=== PATIENT | male | born 1945 | race Caucasian/White ===

== ENCOUNTER 2016-08-12 19:00 | Emergency (ER) | payer MEDICARE ==
--- NOTE | 2016-08-12 19:33 | EDM.PDOC ---
ED HPI GENERAL MEDICAL PROBLEM - General Chief Complaint: Genitourinary Problem Stated Complaint: HAD SURGERY/PLUGGED CATHETER Time Seen by Provider: 08/12/16 19:21 - History of Present Illness INITIAL COMMENTS - FREE TEXT/NARRATIVE: HISTORY AND PHYSICAL: History of present illness: The patient is a 71-year-old male who presents with a indwelling Crowe catheter that was placed on Wednesday after hip surgery when he was unable to urinate postoperatively. Patient states that the urine output has been good from the Crowe and over the last few hours has only put out a small amount is concerned that it might be clogged. He she had right hip surgery at [facility] in [place] on Wednesday and has been doing well from that perspective--mild hip pain but not excessive. He's had no systemic complaints of fevers chills chest pain shortness of breath abdominal pain and has been using the pain medications as needed but had a bowel movement today. Last evening he had good urine output and when he woke this morning his bag was full but throughout the day today he has been drinking a lot of water and has not had a lot of urine output. He does not feel like his bladder is full and has no pelvic or lower abdominal pain. He had his prostate checked within the last year by Dr. Nixon and he was told that it was not enlarged. Patient denies any flank pain and has no history of kidney problems. He otherwise has no complaints other than wanting the Crowe to be checked Review of systems: As per history of present illness and below otherwise all systems reviewed and negative. Past medical history: As per history of present illness and as reviewed below otherwise noncontributory. Surgical history: As per history of present illness and as reviewed below otherwise noncontributory. Social history: No reported history of drug or alcohol abuse. Family history: As per history of present illness and as reviewed below otherwise noncontributory. Physical exam: General: Well-developed well-nourished man who is nontoxic and has a bleeding with a walker without difficulty. He moves easily in the ED without distress. HEENT: Atraumatic, normocephalic, negative for conjunctival pallor or scleral icterus, mucous membranes moist, throat clear, neck supple, nontender, trachea midline. Lungs: Clear to auscultation, breath sounds equal bilaterally, chest nontender. Heart: S1S2, regular, negative for clicks, rubs, or JVD. Abdomen: Soft, nondistended, nontender. There is no specific suprapubic fullness or tenderness appreciated. Negative for masses or hepatosplenomegaly. Negative for costovertebral tenderness. Pelvis: Stable nontender. Genitourinary: Deferred. Leg bag was visualized and there was approximately 50- 100 cc of colored urine in the bag which the patient states is relatively new. Rectal: Deferred. Extremities: Atraumatic, negative for cords or calf pain. Neurovascular unremarkable. Incision at right hip is clean and dry with dressing intact and there is some pinkish brawny erythema around it but no tenderness fluctuance or drainage. Neuro: Awake, alert, oriented. Cranial nerves II through XII unremarkable. Cerebellum unremarkable. Motor and sensory unremarkable throughout. Exam nonfocal. Diagnostics: Therapeutics: Irritation of Crowe, bladder scan The patient would like to defer labs at this time and only address the Crowe catheter which we will have nursing do Nursing has irrigated the Crowe and is getting output of what ever they're putting and so we will perform bladder scan and reevaluate Bladder scan has revealed 35 cc. I discussed with the patient that his decreased urine output is not due to a Crowe catheter malfunction but he needs to drink more fluids. He is aware of this and we'll continue to monitor his output. I advised him Impression: Crowe catheter evaluation Definitive disposition and diagnosis as appropriate pending reevaluation and review of above. Right Hip Pain Score (Numeric/FACES): 3 - Related Data Allergies Allergy/AdvReac Type Severity Reaction Status Date / Time No Known Allergies Allergy Unverified 08/12/16 19:18 Past Medical History HEENT History: Reports: Impaired vision Cardiovascular History: Reports: Hypertension Respiratory History: Reports: None Gastrointestinal History: Reports: GI bleed Genitourinary History: Reports: Renal calculus Neurological History: Reports: None Psychiatric History: Reports: None Endocrine/Metabolic History: Reports: None Hematologic History: Reports: None Immunologic History: Reports: None Oncologic (Cancer) History: Reports: None Dermatologic History: Reports: None - Infectious Disease History Infectious Disease History: Reports: None - Past Surgical History Head Surgeries/Procedures: Reports: None HEENT Surgical History: Reports: None Cardiovascular Surgical History: Reports: None GI Surgical History: Reports: Appendectomy Musculoskeletal Surgical History: Reports: Hip replacement Other Musculoskeletal Surgeries/Procedures:: bilateral hip replacement Social & Family History - Family History Family Medical History: Noncontributory - Tobacco Use Smoking Status *Q: Never Smoker - Caffeine Use Caffeine Use: Reports: Coffee - Recreational Drug Use Recreational Drug Use: No ED ROS GENERAL - Review of Systems Review Of Systems: ROS reveals no pertinent complaints other than HPI. ED EXAM, GENERAL - Physical Exam Exam: See Below (See dictation) Course - Vital Signs Last Recorded V/S: Last Vital Signs Temp 36.8 C 08/12/16 19:14 Pulse 100 08/12/16 19:14 Resp 18 08/12/16 19:14 BP 139/83 08/12/16 19:14 Pulse Ox 98 08/12/16 19:14 - Orders/Labs/Meds Orders: Active Orders 24 hr Category Date Time Status Bladder Scan [RC] ONETIME Care 08/12/16 19:45 Active Communication Order [RC] STAT Care 08/12/16 19:29 Active Departure - Departure Time of Disposition: 19:57 Disposition: Home, Self-Care 01 Condition: good Clinical Impression: Crowe catheter problem Qualifiers: Encounter type: initial encounter Qualified Code(s): T83.9XXA - Unspecified complication of genitourinary prosthetic device, implant and graft, initial encounter Forms: ED Department Discharge Additional Instructions: The following information is given to patients seen in the emergency department who are being discharged to home. This information is to outline your options for follow-up care. We provide all patients seen in our emergency department with a follow-up referral. The need for follow-up, as well as the timing and circumstances, are variable depending upon the specifics of your emergency department visit. If you don't have a primary care physician on staff, we will provide you with a referral. We always advise you to contact your personal physician following an emergency department visit to inform them of the circumstance of the visit and for follow-up with them and/or the need for any referrals to a consulting specialist. The emergency department will also refer you to a specialist when appropriate. This referral assures that you have the opportunity for followup care with a specialist. All of these measure are taken in an effort to provide you with optimal care, which includes your followup. Under all circumstances we always encourage you to contact your private physician who remains a resource for coordinating your care. When calling for followup care, please make the office aware that this follow-up is from your recent emergency room visit. If for any reason you are refused follow-up, please contact the [facility] emergency department at and ask to speak to the emergency department charge nurse. [facility] Primary care- Internal Medicine and Family [address] [address] Please continue to monitor your urine output and return here as needed and as discussed. Please push more fluids and avoid caffeinated products. Please followup with your provider in the clinic for Crowe removal as scheduled. - My Orders Last 24 Hours: My Active Orders 08/12/16 19:29 Communication Order [RC] STAT 08/12/16 19:45 Bladder Scan [RC] ONETIME - Assessment/Plan Last 24 Hours: My Active Orders 08/12/16 19:29 Communication Order [RC] STAT 08/12/16 19:45 Bladder Scan [RC] ONETIME
[2016-08-12 20:26] VITALS: BP 127/78
== END 2016-08-12 20:06 | disposition home or self-care (01) ==
LOC: MW.ED 19:00
DX: T83.9XXA Unspecified complication of genitourinary prosthetic device, implant and graft, initial encounter (principal); I10 Essential (primary) hypertension; Z90.49 Acquired absence of other specified parts of digestive tract
CPT/HCPCS: 99282; 99283

== ENCOUNTER → 2016-08-18 | Outpatient (CLI) | payer MEDICARE ==
[2016-08-18 13:22] LABS: CHLORIDE,CL 102 mmol/L (98-110); SODIUM,NA 135 mmol/L (136-146)
== END ==
LOC: MW.CHFP 12:48
PROVIDERS: ATTEND Emergency Medicine
DX: I10 Essential (primary) hypertension (principal); M25.551 Pain in right hip; N40.1 Benign prostatic hyperplasia with lower urinary tract symptoms; R33.8 Other retention of urine
CPT/HCPCS: 36415; 80048; G0463